=== PATIENT | male | born 1980 | race Caucasian/White ===

== ENCOUNTER 2017-01-09 07:46 | Emergency (ER) | payer OTHER ==
[~2017-01-09] VITALS: Ht 170.2 cm; Wt 93.0 kg
[~2017-01-09 07:46] MED LIST: IBUP-238 PO
[2017-01-09 07:55] VITALS: BP 135/82; PULSE 83; RESP 16; TEMP 97.7; O2SAT 98
[2017-01-09] MEDS ORDERED: KETOROLAC TROMETHAMINE 60 MG/2 ML (IM) VIAL IM ONE (08:15)
[2017-01-09] MEDS ORDERED: CYCL1TAB29 PO (08:15)
[2017-01-09] MEDS ORDERED: IBUP-232 PO (08:15)
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
== END 2017-01-09 08:24 | disposition home or self-care (01) ==
LOC: PHEFT 07:46
DX: M54.5 Low back pain (principal)
CPT/HCPCS: 96372; 99284; J1885

== ENCOUNTER 2017-01-11 09:07 | Emergency (ER) | payer OTHER ==
[~2017-01-11] VITALS: Ht 170.2 cm; Wt 90.3 kg
[~2017-01-11 09:07] MED LIST changes: +CYCL1TAB29 PO; +IBUP-232 PO; -IBUP-238 PO
[2017-01-11 09:11] VITALS: BP 135/75; PULSE 76; RESP 16; TEMP 98.5; O2SAT 98
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
== END 2017-01-11 09:40 | disposition home or self-care (01) ==
LOC: PHED 09:07
DX: Z02.79 Encounter for issue of other medical certificate (principal)
CPT/HCPCS: 99281

== ENCOUNTER 2017-08-08 06:21 | Emergency (ER) | payer OTHER ==
[~2017-08-08] VITALS: Ht 170.2 cm; Wt 91.5 kg
[2017-08-08 06:24] VITALS: BP 143/85; PULSE 67; RESP 18; TEMP 97.9; O2SAT 100
[2017-08-08] MEDS ORDERED: IBUP-232 PO (06:44)
[2017-08-08] MEDS ORDERED: CYCL10TA PO (07:19)
[2017-08-08] MEDS ORDERED: HYDR-3288 PO (07:19)
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
== END 2017-08-08 07:42 | disposition home or self-care (01) ==
LOC: PHED 06:21
DX: M54.16 Radiculopathy, lumbar region (principal)
CPT/HCPCS: 99283